=== PATIENT | male | born 1940 | race Caucasian/White ===

== ENCOUNTER 2021-01-20 15:51 | Inpatient (IN) | payer MEDICARE, OTHER ==
[~2021-01-20] VITALS: Ht 154.9 cm; Wt 123.4 kg
[2021-01-20 22:30] VITALS: BP 174/88
[2021-01-20] MEDS ORDERED: Z GUARD REMEDY PASTE 57 GM TUBE TOP PRN (22:30)
[2021-01-20] MEDS ORDERED: HYDR4TAB57 PO (22:51)
[2021-01-20] MEDS ORDERED: ATOR40TA PO (22:58)
[2021-01-20] MEDS ORDERED: ALLO100T56 GT (22:58)
[2021-01-20] MEDS ORDERED: CLOP75TA33 PO (22:58)
[2021-01-20] MEDS ORDERED: GABA600T12 PO (22:58)
[2021-01-20] MEDS ORDERED: METO-357 PO (23:23)
[2021-01-20] MEDS ORDERED: BUPR-319 PO (23:23)
[2021-01-20] MEDS ORDERED: RIFA550T PO (23:23)
[2021-01-20] MEDS ORDERED: METF-440 PO (23:23)
[2021-01-20] MEDS ORDERED: LOSA25TA27 PO (23:23)
[2021-01-20] MEDS ORDERED: ESCI5TAB16 PO (23:23)
[2021-01-20] MEDS ORDERED: ASPI81TA31 PO (23:23)
[2021-01-20] MEDS ORDERED: PANT40TA49 PO (23:23)
[2021-01-20] MEDS ORDERED: FINA5TAB11 PO (23:23)
[2021-01-20] MEDS ORDERED: LEVO25TA9 PO (23:23)
[2021-01-21] MEDS: ACETAMINOPHEN 325 MG TABLET PO PRN (00:24)
[2021-01-21] MEDS: HYDROMORPHONE HCL 2 MG TABLET PO PRN (03:47)
[2021-01-21 04:00] VITALS: BP 149/85
[2021-01-21] MEDS: LEVOTHYROXINE SODIUM 25 MCG TABLET PO SCH (06:49)
[2021-01-21] MEDS: PANTOPRAZOLE SODIUM 40 MG TABLET.DR PO SCH (06:50)
--- NOTE | 2021-01-21 07:02 | NUR ---
Admitted 80 y/o male accompanied by 2 [employer] [place] [employer] [place]. Patient is A/Ox4, with episodes of forgetfulness. Dx of deconditioning, debility, gait instability, and near syncope. Dr Hernandez and GRACE Shah informed of admission. Medication reconciliation done by GRACE Shah. Pertinent assessment done, wound pictures taken, MRSA swab and belonging's inventory done. Patient complaint of headache 10/10 and noted with high BP, tylenol PRN and Dilaudid PRN given with verbalization of relief. BP rechecked 154/86. Oriented patient to facility, call light placed within reach. Urinal at bedside and emptied out as needed. All needs attended. Frequent visual checks done. Will continue to monitor.
[2021-01-21 07:49] VITALS: BP 153/94
[2021-01-21] MEDS: ASPIRIN 81 MG TAB.CHEW PO SCH (09:53)
[2021-01-21] MEDS: buPROPion XL 150 MG TAB.SR.24H PO SCH (09:53)
[2021-01-21] MEDS: CLOPIDOGREL 75 MG TABLET PO SCH (09:53)
[2021-01-21] MEDS: METOPROLOL SUCCINATE XL 50 MG TAB.SR.24H PO SCH (09:56)
[2021-01-21] MEDS: LOSARTAN POTASSIUM 25 MG TABLET PO SCH (09:57)
[2021-01-21] MEDS: ESCITALOPRAM OXALATE 10 MG TABLET PO SCH (09:57)
[2021-01-21] MEDS: ALLOPURINOL 100 MG TABLET PO SCH (09:57)
[2021-01-21] MEDS: FINASTERIDE 5 MG TABLET PO SCH (09:57)
[2021-01-21] MEDS: RIFAXIMIN 550 MG TABLET PO SCH ×2 (10:41→16:42)
[2021-01-21] MEDS: METFORMIN HCL 500 MG TABLET PO SCH ×2 (10:54→16:42)
[2021-01-21 15:23] VITALS: BP 152/76
[2021-01-21] MEDS: ATORVASTATIN 40 MG TABLET PO SCH (18:30)
[2021-01-21] MEDS: GABAPENTIN 300 MG CAPSULE PO SCH (18:30)
[2021-01-21 20:00] VITALS: BP 130/63
--- NOTE | 2021-01-21 21:41 | NUR ---
Received patient on bed watching TV with no respiratory distress noted. A/Ox4, able to make needs known. Denies pain and discomfort at this time. Urinal at bedside and emptied out. All needs attended. Call light placed within reach. Frequent visual checks done. Will continue to monitor.
[2021-01-22] MEDS: PANTOPRAZOLE SODIUM 40 MG TABLET.DR PO SCH (06:33)
[2021-01-22] MEDS: LEVOTHYROXINE SODIUM 25 MCG TABLET PO SCH (06:33)
--- NOTE | 2021-01-22 06:46 | NUR ---
Patient slept throughout the night, easily arousable. A/Ox4, able to make needs known. Denies pain and discomfort at this time. Urinal at bedside and emptied out as needed. All needs attended. Call light placed within reach. Frequent visual checks done. Will endorse to next shift nurse.
[2021-01-22 06:53] LABS: HEMATOCRIT 40.7 % (36.7-47.1); MEAN CORPUSCULAR HEMOGLOBIN 30.6 uug (23.8-33.4); PLATELET COUNT (AUTO) 126 K/uL (152-348)
[2021-01-22 07:28] LABS: THYROID STIMULATING HORMONE 3.898 mIU/mL (0.358-3.740)
[2021-01-22 07:42] LABS: ALANINE AMINOTRANSFERASE 41 U/L (16-63); ALKALINE PHOSPHATASE 182 U/L (50-136); ASPARTATE AMINOTRANSFERASE 54 U/L (15-37); CARBON DIOXIDE 28 mmol/L (21-32); CHLORIDE 105 mmol/L (98-107); CHOLESTEROL 148 mg/dL (<200); CREATININE 1.6 mg/dL (0.6-1.3); GLUCOSE 101 mg/dL (74-106); HDL CHOLESTEROL 37 mg/dL (40-60); MAGNESIUM 2.1 mg/dL (1.8-2.4); POTASSIUM 4.1 mmol/L (3.5-5.1); TOTAL PROTEIN, SERUM 7.3 g/dL (6.4-8.2); TRIGLYCERIDES 108 MG/DL (30-150); UREA NITROGEN, BLOOD 21 mg/dL (7-18)
[2021-01-22] MEDS: ASPIRIN 81 MG TAB.CHEW PO SCH (09:13)
[2021-01-22] MEDS: LOSARTAN POTASSIUM 25 MG TABLET PO SCH (09:14)
[2021-01-22] MEDS: METOPROLOL SUCCINATE XL 50 MG TAB.SR.24H PO SCH (09:14)
[2021-01-22] MEDS: CLOPIDOGREL 75 MG TABLET PO SCH (09:15)
[2021-01-22] MEDS: buPROPion XL 150 MG TAB.SR.24H PO SCH (09:15)
[2021-01-22] MEDS: ALLOPURINOL 100 MG TABLET PO SCH (09:15)
[2021-01-22] MEDS: METFORMIN HCL 500 MG TABLET PO SCH ×2 (09:15→17:14)
[2021-01-22] MEDS: ESCITALOPRAM OXALATE 10 MG TABLET PO SCH (09:15)
[2021-01-22] MEDS: RIFAXIMIN 550 MG TABLET PO SCH ×2 (09:15→17:14)
[2021-01-22] MEDS: FINASTERIDE 5 MG TABLET PO SCH (09:16)
[2021-01-22 11:53] VITALS: BP 124/73
[2021-01-22 15:49] VITALS: BP 144/79
[2021-01-22] MEDS: GABAPENTIN 300 MG CAPSULE PO SCH (17:14)
[2021-01-22] MEDS: ATORVASTATIN 40 MG TABLET PO SCH (17:14)
[2021-01-22 20:08] VITALS: BP 160/90
[2021-01-22] MEDS: HYDROMORPHONE HCL 2 MG TABLET PO PRN (20:12)
--- NOTE | 2021-01-22 20:30 | NUR ---
Received pt resting in bed and watching tv. AAO x4. No acute distress noted. C/o 8/10 pain on the lower back aggravated by ambulation. Dilaudid PRN given as ordered. Safety measures maintained. Call light and personal items within reach. Will continue to monitor.
[2021-01-22] MEDS ORDERED: CLONIDINE HCL 0.1 MG TABLET PO PRN (20:45)
--- NOTE | 2021-01-22 22:30 | NUR ---
Pt's BP elevated 160/90 , rechecked 162/ 87. Pt denies CP, SOB, and dizziness. Notified [facility] who is doing her rounds on the floor. New order for clonidine 0.1 mg Q8H ORN for SBP >160. Carried out order, continue to monitor.
[2021-01-23 00:04] VITALS: BP 114/56
[2021-01-23 04:10] VITALS: BP 108/60
[2021-01-23] MEDS: LEVOTHYROXINE SODIUM 25 MCG TABLET PO SCH (06:34)
[2021-01-23] MEDS: PANTOPRAZOLE SODIUM 40 MG TABLET.DR PO SCH (06:34)
[2021-01-23 08:00] VITALS: BP 97/45
[2021-01-23] MEDS: METOPROLOL SUCCINATE XL 50 MG TAB.SR.24H PO SCH (09:00)
[2021-01-23] MEDS: ESCITALOPRAM OXALATE 10 MG TABLET PO SCH (09:56)
[2021-01-23] MEDS: buPROPion XL 150 MG TAB.SR.24H PO SCH (09:56)
[2021-01-23] MEDS: METFORMIN HCL 500 MG TABLET PO SCH ×2 (09:57→17:15)
[2021-01-23] MEDS: ASPIRIN 81 MG TAB.CHEW PO SCH (09:59)
[2021-01-23] MEDS: CLOPIDOGREL 75 MG TABLET PO SCH (09:59)
[2021-01-23] MEDS: FINASTERIDE 5 MG TABLET PO SCH (10:00)
[2021-01-23] MEDS: LOSARTAN POTASSIUM 25 MG TABLET PO SCH (10:01)
[2021-01-23] MEDS: ALLOPURINOL 100 MG TABLET PO SCH (10:09)
[2021-01-23] MEDS: RIFAXIMIN 550 MG TABLET PO SCH ×2 (10:10→17:15)
[2021-01-23] MEDS: HYDROMORPHONE HCL 2 MG TABLET PO PRN (10:11)
[2021-01-23 16:29] VITALS: BP 118/52
[2021-01-23] MEDS: GABAPENTIN 300 MG CAPSULE PO SCH (17:15)
[2021-01-23] MEDS: ATORVASTATIN 40 MG TABLET PO SCH (17:15)
[2021-01-23 21:02] VITALS: BP 160/78
[2021-01-24 04:21] VITALS: BP 122/58
--- NOTE | 2021-01-24 06:00 | NUR ---
SHIFT NOTES; BEGINNING OF SHIFT PT HAS A FAMILY NO SIGNS OF DISTRESS NOTED AND PT DENIES PAIN. PT WAS GIVEN MEDICATION ORDERED NO SIGNS OF ADVERSE REACTION NOTED. WILL CONTINUE TO MONITOR FOR SAFETY AND FALLS ALSO ENDORSE TO AM NURSE.
[2021-01-24] MEDS: LEVOTHYROXINE SODIUM 25 MCG TABLET PO SCH (06:56)
[2021-01-24] MEDS: PANTOPRAZOLE SODIUM 40 MG TABLET.DR PO SCH (06:56)
[2021-01-24 08:00] VITALS: BP 132/72
[2021-01-24] MEDS: LOSARTAN POTASSIUM 25 MG TABLET PO SCH (09:42)
[2021-01-24] MEDS: METOPROLOL SUCCINATE XL 50 MG TAB.SR.24H PO SCH (09:42)
[2021-01-24] MEDS: ASPIRIN 81 MG TAB.CHEW PO SCH (09:45)
[2021-01-24] MEDS: buPROPion XL 150 MG TAB.SR.24H PO SCH (09:45)
[2021-01-24] MEDS: CLOPIDOGREL 75 MG TABLET PO SCH (09:46)
[2021-01-24] MEDS: ALLOPURINOL 100 MG TABLET PO SCH (09:46)
[2021-01-24] MEDS: RIFAXIMIN 550 MG TABLET PO SCH ×2 (09:47→16:42)
[2021-01-24] MEDS: FINASTERIDE 5 MG TABLET PO SCH (09:48)
[2021-01-24] MEDS: METFORMIN HCL 500 MG TABLET PO SCH ×2 (09:51→16:42)
[2021-01-24] MEDS: ESCITALOPRAM OXALATE 10 MG TABLET PO SCH (09:52)
[2021-01-24 12:00] VITALS: BP 140/70
[2021-01-24 16:30] VITALS: BP 179/88
[2021-01-24] MEDS: HYDROMORPHONE HCL 2 MG TABLET PO PRN (16:41)
[2021-01-24] MEDS: ATORVASTATIN 40 MG TABLET PO SCH (16:42)
[2021-01-24] MEDS: GABAPENTIN 300 MG CAPSULE PO SCH (16:42)
[2021-01-24 20:18] VITALS: BP 151/70
[2021-01-25 04:18] VITALS: BP 143/74
[2021-01-25] MEDS: LEVOTHYROXINE SODIUM 25 MCG TABLET PO SCH (06:24)
[2021-01-25] MEDS: PANTOPRAZOLE SODIUM 40 MG TABLET.DR PO SCH (06:25)
[2021-01-25 08:01] VITALS: BP 125/71
[2021-01-25] MEDS: buPROPion XL 150 MG TAB.SR.24H PO SCH (08:21)
[2021-01-25] MEDS: FINASTERIDE 5 MG TABLET PO SCH (08:21)
[2021-01-25] MEDS: METFORMIN HCL 500 MG TABLET PO SCH ×2 (08:21→17:02)
[2021-01-25] MEDS: LOSARTAN POTASSIUM 25 MG TABLET PO SCH (08:21)
[2021-01-25] MEDS: ALLOPURINOL 100 MG TABLET PO SCH (08:21)
[2021-01-25] MEDS: CLOPIDOGREL 75 MG TABLET PO SCH (08:21)
[2021-01-25] MEDS: ASPIRIN 81 MG TAB.CHEW PO SCH (08:21)
[2021-01-25] MEDS: METOPROLOL SUCCINATE XL 50 MG TAB.SR.24H PO SCH (08:21)
[2021-01-25] MEDS: ESCITALOPRAM OXALATE 10 MG TABLET PO SCH (08:21)
[2021-01-25] MEDS: RIFAXIMIN 550 MG TABLET PO SCH ×2 (08:22→16:23)
[2021-01-25] MEDS: ACETAMINOPHEN 325 MG TABLET PO PRN (11:26)
[2021-01-25 15:46] VITALS: BP 148/77
[2021-01-25] MEDS: GABAPENTIN 300 MG CAPSULE PO SCH (17:02)
[2021-01-25] MEDS: ATORVASTATIN 40 MG TABLET PO SCH (17:02)
[2021-01-25 20:00] VITALS: BP 155/86
[2021-01-26] MEDS: HYDROMORPHONE HCL 2 MG TABLET PO PRN ×2 (00:31→18:15)
[2021-01-26 04:00] VITALS: BP 119/98
[2021-01-26] MEDS: LEVOTHYROXINE SODIUM 25 MCG TABLET PO SCH (06:04)
[2021-01-26] MEDS: PANTOPRAZOLE SODIUM 40 MG TABLET.DR PO SCH (06:04)
[2021-01-26 07:28] LABS: HEMATOCRIT 42.5 % (36.7-47.1); MEAN CORPUSCULAR HEMOGLOBIN 30.8 uug (23.8-33.4); MEAN CORPUSCULAR VOLUME 94.4 fL (73.0-96.2); PLATELET COUNT (AUTO) 146 K/uL (152-348)
[2021-01-26 07:30] VITALS: BP 109/64
--- NOTE | 2021-01-26 07:30 | NUR ---
RECEIVED AWAKE IN BED. NO ACUTE DISTRESS. IN PLEASANT MOOD AND CONVERSANT. IV INTACT. DENIES PAIN AT THIS TIME. SAFETY MEASURES IN PLACE. WILL CONTINUE TO MONITOR.
[2021-01-26 07:53] LABS: CARBON DIOXIDE 28 mmol/L (21-32); CHLORIDE 100 mmol/L (98-107); CREATININE 1.7 mg/dL (0.6-1.3); GLUCOSE 89 mg/dL (74-106); MAGNESIUM 2.2 mg/dL (1.8-2.4); PHOSPHOROUS 3.6 mg/dL (2.5-4.9); POTASSIUM 4.4 mmol/L (3.5-5.1); UREA NITROGEN, BLOOD 26 mg/dL (7-18)
[2021-01-26] MEDS: buPROPion XL 150 MG TAB.SR.24H PO SCH (08:50)
[2021-01-26] MEDS: ASPIRIN 81 MG TAB.CHEW PO SCH (08:50)
[2021-01-26] MEDS: METOPROLOL SUCCINATE XL 50 MG TAB.SR.24H PO SCH (08:51)
[2021-01-26] MEDS: METFORMIN HCL 500 MG TABLET PO SCH ×2 (08:51→17:13)
[2021-01-26] MEDS: LOSARTAN POTASSIUM 25 MG TABLET PO SCH (08:51)
[2021-01-26] MEDS: CLOPIDOGREL 75 MG TABLET PO SCH (08:51)
[2021-01-26] MEDS: ALLOPURINOL 100 MG TABLET PO SCH (08:52)
[2021-01-26] MEDS: FINASTERIDE 5 MG TABLET PO SCH (08:52)
[2021-01-26] MEDS: ESCITALOPRAM OXALATE 10 MG TABLET PO SCH (08:52)
[2021-01-26] MEDS: RIFAXIMIN 550 MG TABLET PO SCH ×2 (08:56→17:13)
[2021-01-26] MEDS: ACETAMINOPHEN 325 MG TABLET PO PRN (10:12)
--- NOTE | 2021-01-26 11:30 | NUR ---
C/O OF PAIN ON LEFT TOE. PER PATIENT HE ACCIDENTALLY HIT IT CAN'T REMEMBER WHERE. INFORMED DR. JESUS WITH LEFT FOOT XRAY NOTED AND CARRIED OUT.
[2021-01-26 15:33] VITALS: BP 138/74
--- NOTE | 2021-01-26 16:54 | NUR ---
RELAYED LEFT FOOT XRAY RESULT TO DR. JESUS.
[2021-01-26] MEDS: ATORVASTATIN 40 MG TABLET PO SCH (17:13)
[2021-01-26] MEDS: GABAPENTIN 300 MG CAPSULE PO SCH (17:13)
--- NOTE | 2021-01-26 18:49 | NUR ---
RESTING IN BED. NO ACUTE DISTRESS. DUE MEDS GIVEN. NO ADVERSE REACTION NOTED. SAFETY MEASURES MAINTAINED. NEEDS ATTENDED. WILL ENDORSE ACCORDINGLY.
[2021-01-26 20:00] VITALS: BP 145/86
--- NOTE | 2021-01-26 22:05 | NUR ---
Awake alert and oriented x4 All needs attended. Voiding freely in the urinal. Was OOB with supervision. No acute distress noted. VSS Kept comfortable. Denies any pain nor any discomfort. Will monitor patient.
[2021-01-27 04:00] VITALS: BP 127/72
[2021-01-27] MEDS: PANTOPRAZOLE SODIUM 40 MG TABLET.DR PO SCH (06:14)
[2021-01-27] MEDS: LEVOTHYROXINE SODIUM 25 MCG TABLET PO SCH (06:14)
[2021-01-27] MEDS: CLOPIDOGREL 75 MG TABLET PO SCH (08:28)
[2021-01-27] MEDS: ASPIRIN 81 MG TAB.CHEW PO SCH (08:28)
[2021-01-27] MEDS: RIFAXIMIN 550 MG TABLET PO SCH ×2 (08:28→16:48)
[2021-01-27] MEDS: FINASTERIDE 5 MG TABLET PO SCH (08:29)
[2021-01-27] MEDS: ESCITALOPRAM OXALATE 10 MG TABLET PO SCH (08:29)
[2021-01-27] MEDS: buPROPion XL 150 MG TAB.SR.24H PO SCH (08:29)
[2021-01-27] MEDS: ALLOPURINOL 100 MG TABLET PO SCH (08:29)
[2021-01-27] MEDS: METFORMIN HCL 500 MG TABLET PO SCH ×2 (08:29→17:11)
[2021-01-27] MEDS: METOPROLOL SUCCINATE XL 50 MG TAB.SR.24H PO SCH (08:30)
[2021-01-27] MEDS: LOSARTAN POTASSIUM 25 MG TABLET PO SCH (08:30)
[2021-01-27 08:40] VITALS: BP 115/69
[2021-01-27] MEDS: HYDROMORPHONE HCL 2 MG TABLET PO PRN ×2 (08:46→20:20)
--- NOTE | 2021-01-27 14:01 | NUR ---
INDIVIDUALIZED PLAN OF CARE
--- NOTE | 2021-01-27 14:30 | NUR ---
INTERDISCIPLINARY TEAM CONFERENCE
[2021-01-27 15:35] VITALS: BP 135/77
[2021-01-27] MEDS: ATORVASTATIN 40 MG TABLET PO SCH (17:11)
[2021-01-27] MEDS: GABAPENTIN 300 MG CAPSULE PO SCH (17:11)
--- NOTE | 2021-01-27 18:13 | NUR ---
Dr govea is awsre of CT scan result of left foot, with recommendation of ortho consult.
--- NOTE | 2021-01-27 19:12 | NUR ---
PAGED DR PUENTE FOR WEIGHT BEARING STATUS AND FOR CONSULT, WAITING FOR RESPONSE
--- NOTE | 2021-01-27 19:12 | NUR ---
PATIENT STILL NOTED WITH SOME RECTAL AND VAGINAL BLEEDING, NO DISTRESS NOTED Addendum: 01/27/21 at 1913 by LOC ARMSTRONG RN, RN DISCARD ABOVE CHARTING, WRONG DOCUMENTATION
[2021-01-27 20:48] VITALS: BP 135/64
--- NOTE | 2021-01-27 21:46 | NUR ---
Resting in bed watching TV upon initial rounds. AAOx4 complained of left toe pain, dilaudid 4mg po given as needed for pain. Patient had fracture of 5th metatarsal and 4th talus fracture, Dr Majano consulted, awaiting for reply. Needs attended. Continent of bowel and bladder, voiding well in the urinal, no BM noted this shift. Will monitor patient. Siderails up for safety.
[2021-01-28 04:00] VITALS: BP 130/72
[2021-01-28] MEDS: LEVOTHYROXINE SODIUM 25 MCG TABLET PO SCH (06:14)
[2021-01-28] MEDS: PANTOPRAZOLE SODIUM 40 MG TABLET.DR PO SCH (06:14)
[2021-01-28 08:00] VITALS: BP 135/69
--- NOTE | 2021-01-28 08:16 | NUR ---
Patient was reported to have fracture of 5th metatarsal and 4th talus fracture, Dr Majano order Short leg boot WBAzt, noted and carried out. Will continue to monitor.
[2021-01-28] MEDS: CLOPIDOGREL 75 MG TABLET PO SCH (08:56)
[2021-01-28] MEDS: METOPROLOL SUCCINATE XL 50 MG TAB.SR.24H PO SCH (08:56)
[2021-01-28] MEDS: ALLOPURINOL 100 MG TABLET PO SCH (08:56)
[2021-01-28] MEDS: buPROPion XL 150 MG TAB.SR.24H PO SCH (08:56)
[2021-01-28] MEDS: ASPIRIN 81 MG TAB.CHEW PO SCH (08:56)
[2021-01-28] MEDS: ESCITALOPRAM OXALATE 10 MG TABLET PO SCH (08:57)
[2021-01-28] MEDS: FINASTERIDE 5 MG TABLET PO SCH (08:58)
[2021-01-28] MEDS: LOSARTAN POTASSIUM 25 MG TABLET PO SCH (08:58)
[2021-01-28] MEDS: METFORMIN HCL 500 MG TABLET PO SCH ×2 (08:58→16:58)
[2021-01-28] MEDS: RIFAXIMIN 550 MG TABLET PO SCH ×2 (09:55→16:24)
[2021-01-28] MEDS: HYDROMORPHONE HCL 2 MG TABLET PO PRN (10:49)
[2021-01-28 15:52] VITALS: BP 132/75
[2021-01-28] MEDS: GABAPENTIN 300 MG CAPSULE PO SCH (16:58)
[2021-01-28] MEDS: ATORVASTATIN 40 MG TABLET PO SCH (16:58)
--- NOTE | 2021-01-28 17:27 | NUR ---
The patient is alert/oriented x4. No distress noted. PRN pain medication given as ordered. Kept boot in place as ordered. Safety checks frequently done and safety precaution maintained. Kept patient clean, dry, and comfortable. All needs attended. Will continue to monitor for any significant changes.
[2021-01-28 20:10] VITALS: BP 123/82
[2021-01-29 04:10] VITALS: BP 131/64
[2021-01-29] MEDS: LEVOTHYROXINE SODIUM 25 MCG TABLET PO SCH (05:55)
[2021-01-29] MEDS: PANTOPRAZOLE SODIUM 40 MG TABLET.DR PO SCH (05:55)
--- NOTE | 2021-01-29 07:30 | NUR ---
Patient received in bed, alert and oriented x4. Patient on RA with no SOB or difficulties breathing. No acute distress noted. Left leg boot in place as ordered. No reports of pain or discomforts at this time. Call light and personal belongings within easy reach. Will continue to monitor.
[2021-01-29] MEDS: METFORMIN HCL 500 MG TABLET PO SCH ×2 (08:36→17:13)
[2021-01-29] MEDS: ALLOPURINOL 100 MG TABLET PO SCH (08:36)
[2021-01-29] MEDS: ASPIRIN 81 MG TAB.CHEW PO SCH (08:36)
[2021-01-29] MEDS: buPROPion XL 150 MG TAB.SR.24H PO SCH (08:36)
[2021-01-29] MEDS: CLOPIDOGREL 75 MG TABLET PO SCH (08:36)
[2021-01-29] MEDS: FINASTERIDE 5 MG TABLET PO SCH (08:37)
[2021-01-29] MEDS: ESCITALOPRAM OXALATE 10 MG TABLET PO SCH (08:37)
[2021-01-29] MEDS: METOPROLOL SUCCINATE XL 50 MG TAB.SR.24H PO SCH (08:40)
[2021-01-29] MEDS: LOSARTAN POTASSIUM 25 MG TABLET PO SCH (08:40)
[2021-01-29] MEDS: RIFAXIMIN 550 MG TABLET PO SCH ×2 (08:41→17:13)
[2021-01-29] MEDS: HYDROMORPHONE HCL 2 MG TABLET PO PRN (13:28)
--- NOTE | 2021-01-29 13:30 | NUR ---
PT NOTE PT UNABLE TO MICHAEL OUT OF ROOM ACTIVITIES TODAY D/T BACK PAIN, FATIGUE AND LOW BP. SKIN ASSESSMENT RECOMMENDED D/T SHORT LEG BOOT ON FOR PT ACTIVITIES. WILL F/U NEXT TX SCHEDULED.
[2021-01-29 16:10] VITALS: BP 98/65
[2021-01-29] MEDS: ATORVASTATIN 40 MG TABLET PO SCH (17:13)
[2021-01-29] MEDS: GABAPENTIN 300 MG CAPSULE PO SCH (17:13)
[2021-01-29] MEDS: ACETAMINOPHEN 325 MG TABLET PO PRN (17:13)
[2021-01-29 20:15] VITALS: BP 134/62
[2021-01-30 04:08] VITALS: BP 113/71
[2021-01-30] MEDS: PANTOPRAZOLE SODIUM 40 MG TABLET.DR PO SCH (06:49)
[2021-01-30] MEDS: LEVOTHYROXINE SODIUM 25 MCG TABLET PO SCH (06:49)
[2021-01-30 07:58] VITALS: BP 119/46
[2021-01-30] MEDS: METFORMIN HCL 500 MG TABLET PO SCH ×2 (08:15→17:36)
[2021-01-30] MEDS: ALLOPURINOL 100 MG TABLET PO SCH (08:15)
[2021-01-30] MEDS: CLOPIDOGREL 75 MG TABLET PO SCH (08:15)
[2021-01-30] MEDS: FINASTERIDE 5 MG TABLET PO SCH (08:16)
[2021-01-30] MEDS: ASPIRIN 81 MG TAB.CHEW PO SCH (08:16)
[2021-01-30] MEDS: buPROPion XL 150 MG TAB.SR.24H PO SCH (08:16)
[2021-01-30] MEDS: LOSARTAN POTASSIUM 25 MG TABLET PO SCH (08:16)
[2021-01-30] MEDS: ESCITALOPRAM OXALATE 10 MG TABLET PO SCH (08:16)
[2021-01-30] MEDS: METOPROLOL SUCCINATE XL 50 MG TAB.SR.24H PO SCH (08:16)
[2021-01-30] MEDS: RIFAXIMIN 550 MG TABLET PO SCH ×2 (08:17→17:37)
[2021-01-30] MEDS: HYDROMORPHONE HCL 2 MG TABLET PO PRN ×2 (12:46→17:37)
[2021-01-30 15:23] VITALS: BP 115/72
[2021-01-30] MEDS: GABAPENTIN 300 MG CAPSULE PO SCH (17:37)
[2021-01-30] MEDS: ATORVASTATIN 40 MG TABLET PO SCH (17:37)
[2021-01-30 20:25] VITALS: BP 117/74
[2021-01-31 04:20] VITALS: BP 106/57
--- NOTE | 2021-01-31 05:29 | NUR ---
Shift End Report: Slept good. No compliant presented all night. All needs attended and met. No significant event reported. Continue current rehab plan of care. VS stable.
[2021-01-31] MEDS: LEVOTHYROXINE SODIUM 25 MCG TABLET PO SCH (06:01)
[2021-01-31] MEDS: PANTOPRAZOLE SODIUM 40 MG TABLET.DR PO SCH ×2 (06:01→10:50)
[2021-01-31 08:04] VITALS: BP 143/76
[2021-01-31] MEDS: ALLOPURINOL 100 MG TABLET PO SCH (10:50)
[2021-01-31] MEDS: METOPROLOL SUCCINATE XL 50 MG TAB.SR.24H PO SCH (10:50)
[2021-01-31] MEDS: LOSARTAN POTASSIUM 25 MG TABLET PO SCH (10:50)
[2021-01-31] MEDS: FINASTERIDE 5 MG TABLET PO SCH (10:50)
[2021-01-31] MEDS: ASPIRIN 81 MG TAB.CHEW PO SCH (10:50)
[2021-01-31] MEDS: buPROPion XL 150 MG TAB.SR.24H PO SCH (10:51)
[2021-01-31] MEDS: ESCITALOPRAM OXALATE 10 MG TABLET PO SCH (10:51)
[2021-01-31] MEDS: CLOPIDOGREL 75 MG TABLET PO SCH (10:51)
[2021-01-31] MEDS: RIFAXIMIN 550 MG TABLET PO SCH ×2 (11:04→19:31)
[2021-01-31] MEDS: METFORMIN HCL 500 MG TABLET PO SCH ×2 (11:04→19:31)
[2021-01-31] MEDS: HYDROMORPHONE HCL 2 MG TABLET PO PRN ×2 (11:04→21:25)
[2021-01-31 15:14] VITALS: BP 112/60
[2021-01-31] MEDS: GABAPENTIN 300 MG CAPSULE PO SCH (19:30)
[2021-01-31] MEDS: ATORVASTATIN 40 MG TABLET PO SCH (19:30)
[2021-01-31 20:00] VITALS: BP 101/74
[2021-02-01 04:00] VITALS: BP 113/73
[2021-02-01] MEDS: LEVOTHYROXINE SODIUM 25 MCG TABLET PO SCH (06:16)
[2021-02-01] MEDS: METFORMIN HCL 500 MG TABLET PO SCH ×2 (07:26→17:18)
[2021-02-01] MEDS: HYDROMORPHONE HCL 2 MG TABLET PO PRN ×2 (08:54→21:59)
[2021-02-01 08:56] VITALS: BP 126/76
[2021-02-01] MEDS: ESCITALOPRAM OXALATE 10 MG TABLET PO SCH (08:56)
[2021-02-01] MEDS: METOPROLOL SUCCINATE XL 50 MG TAB.SR.24H PO SCH (08:56)
[2021-02-01] MEDS: buPROPion XL 150 MG TAB.SR.24H PO SCH (08:56)
[2021-02-01] MEDS: ASPIRIN 81 MG TAB.CHEW PO SCH (08:56)
[2021-02-01] MEDS: FINASTERIDE 5 MG TABLET PO SCH (08:57)
[2021-02-01] MEDS: LOSARTAN POTASSIUM 25 MG TABLET PO SCH (08:57)
[2021-02-01] MEDS: RIFAXIMIN 550 MG TABLET PO SCH ×2 (08:57→16:44)
[2021-02-01] MEDS: CLOPIDOGREL 75 MG TABLET PO SCH (09:01)
[2021-02-01] MEDS: ALLOPURINOL 100 MG TABLET PO SCH (09:16)
[2021-02-01 15:50] VITALS: BP 100/68
[2021-02-01] MEDS: ATORVASTATIN 40 MG TABLET PO SCH (17:18)
[2021-02-01] MEDS: GABAPENTIN 300 MG CAPSULE PO SCH (17:18)
[2021-02-01 20:26] VITALS: BP 101/54
--- NOTE | 2021-02-01 21:13 | NUR ---
Received pt resting in bed and watching tv. AAO x4. No acute distress noted. Denies pain/ discomfort. Safety measures maintained. Call light and personal items within reach. Will continue to monitor.
[2021-02-02 04:45] VITALS: BP 103/46
[2021-02-02] MEDS: PANTOPRAZOLE SODIUM 40 MG TABLET.DR PO SCH (06:04)
[2021-02-02] MEDS: LEVOTHYROXINE SODIUM 25 MCG TABLET PO SCH (06:04)
[2021-02-02 07:49] VITALS: BP 110/69
[2021-02-02] MEDS: RIFAXIMIN 550 MG TABLET PO SCH ×2 (08:50→16:46)
[2021-02-02] MEDS: buPROPion XL 150 MG TAB.SR.24H PO SCH (08:50)
[2021-02-02] MEDS: HYDROMORPHONE HCL 2 MG TABLET PO PRN (08:50)
[2021-02-02] MEDS: METFORMIN HCL 500 MG TABLET PO SCH ×2 (08:50→16:46)
[2021-02-02] MEDS: ASPIRIN 81 MG TAB.CHEW PO SCH (08:50)
[2021-02-02] MEDS: CLOPIDOGREL 75 MG TABLET PO SCH (08:51)
[2021-02-02] MEDS: ALLOPURINOL 100 MG TABLET PO SCH (08:51)
[2021-02-02] MEDS: ESCITALOPRAM OXALATE 10 MG TABLET PO SCH (08:51)
[2021-02-02] MEDS: LOSARTAN POTASSIUM 25 MG TABLET PO SCH (08:51)
[2021-02-02] MEDS: FINASTERIDE 5 MG TABLET PO SCH (08:51)
[2021-02-02] MEDS: METOPROLOL SUCCINATE XL 50 MG TAB.SR.24H PO SCH (08:51)
[2021-02-02 16:00] VITALS: BP 111/57
[2021-02-02] MEDS: ATORVASTATIN 40 MG TABLET PO SCH (16:46)
[2021-02-02] MEDS: GABAPENTIN 300 MG CAPSULE PO SCH (16:46)
--- NOTE | 2021-02-02 19:00 | NUR ---
The patient is alert/oriented x4. Not in any distress. PRN pain medication given as ordered. Safety checks frequently done and safety precaution maintained. Kept patient clean, dry, and comfortable. All needs attended. Will continue to monitor.
[2021-02-02 20:23] VITALS: BP 133/77
--- NOTE | 2021-02-02 20:54 | NUR ---
Received pt resting in bed. AAO x4. On 2L O2 at night, no acute distress noted. Denies pain/ discomfort. Due meds given as ordered, with apple sauce, tolerated well. Safety measures maintained. Bed alarm on. Call light within reach. Will continue to monitor. Addendum: 02/02/21 at 2055 by Stuart Baker RN WRONG PATIENT ENTRY
--- NOTE | 2021-02-02 20:57 | NUR ---
Received pt resting in bed. AAO x4. Family at bedside visiting pt. No acute distress noted. Denies pain/ discomfort. Pt excited to be discharge on . Safety measures maintained. Bed alarm on. Call light within reach. Will continue to monitor.
[2021-02-03 04:43] VITALS: BP 139/73
[2021-02-03] MEDS: LEVOTHYROXINE SODIUM 25 MCG TABLET PO SCH (06:18)
[2021-02-03] MEDS: PANTOPRAZOLE SODIUM 40 MG TABLET.DR PO SCH (06:18)
[2021-02-03 06:40] LABS: HEMATOCRIT 42.3 % (36.7-47.1); MEAN CORPUSCULAR VOLUME 96.2 fL (73.0-96.2); PLATELET COUNT (AUTO) 170 K/uL (152-348)
[2021-02-03 06:49] LABS: CARBON DIOXIDE 26 mmol/L (21-32); CHLORIDE 100 mmol/L (98-107); CREATININE 2.3 mg/dL (0.6-1.3); GLUCOSE 111 mg/dL (74-106); POTASSIUM 4.3 mmol/L (3.5-5.1); UREA NITROGEN, BLOOD 36 mg/dL (7-18)
[2021-02-03] MEDS ORDERED: IV NS 1000 ML 1,000 ML IV PRN (07:45)
[2021-02-03 07:59] VITALS: BP 121/78
[2021-02-03] MEDS ORDERED: METFORMIN HCL 500 MG TABLET PO SCH (08:00)
[2021-02-03] MEDS: LOSARTAN POTASSIUM 25 MG TABLET PO SCH (08:08)
[2021-02-03] MEDS: CLOPIDOGREL 75 MG TABLET PO SCH (08:08)
[2021-02-03] MEDS: buPROPion XL 150 MG TAB.SR.24H PO SCH (08:08)
[2021-02-03] MEDS: ASPIRIN 81 MG TAB.CHEW PO SCH (08:08)
[2021-02-03] MEDS: ALLOPURINOL 100 MG TABLET PO SCH (08:08)
[2021-02-03] MEDS: ESCITALOPRAM OXALATE 10 MG TABLET PO SCH (08:08)
[2021-02-03] MEDS: RIFAXIMIN 550 MG TABLET PO SCH ×2 (08:09→16:57)
[2021-02-03] MEDS: FINASTERIDE 5 MG TABLET PO SCH (08:09)
[2021-02-03] MEDS: METOPROLOL SUCCINATE XL 50 MG TAB.SR.24H PO SCH (08:09)
[2021-02-03] MEDS: HYDROMORPHONE HCL 2 MG TABLET PO PRN (10:26)
[2021-02-03 15:50] VITALS: BP 127/79
[2021-02-03] MEDS: ATORVASTATIN 40 MG TABLET PO SCH (17:04)
[2021-02-03] MEDS: GABAPENTIN 300 MG CAPSULE PO SCH (17:04)
--- NOTE | 2021-02-03 19:11 | NUR ---
INTERDISCIPLINARY TEAM CONFERENCE
[2021-02-03 22:15] VITALS: BP 116/62
[2021-02-04 04:15] VITALS: BP 102/67
[2021-02-04] MEDS: PANTOPRAZOLE SODIUM 40 MG TABLET.DR PO SCH (06:02)
[2021-02-04] MEDS: LEVOTHYROXINE SODIUM 25 MCG TABLET PO SCH (06:02)
[2021-02-04 06:41] LABS: HEMATOCRIT 37.8 % (36.7-47.1); MEAN CORPUSCULAR HEMOGLOBIN 31.8 uug (23.8-33.4); MEAN CORPUSCULAR VOLUME 94.5 fL (73.0-96.2); PLATELET COUNT (AUTO) 134 K/uL (152-348)
[2021-02-04 07:00] LABS: CARBON DIOXIDE 29 mmol/L (21-32); CHLORIDE 104 mmol/L (98-107); CREATININE 2.4 mg/dL (0.6-1.3); GLUCOSE 116 mg/dL (74-106); UREA NITROGEN, BLOOD 31 mg/dL (7-18)
[2021-02-04 08:00] VITALS: BP 144/80
[2021-02-04] MEDS: HYDROMORPHONE HCL 2 MG TABLET PO PRN (09:17)
[2021-02-04] MEDS: LOSARTAN POTASSIUM 25 MG TABLET PO SCH (09:19)
[2021-02-04] MEDS: buPROPion XL 150 MG TAB.SR.24H PO SCH (09:20)
[2021-02-04] MEDS: ASPIRIN 81 MG TAB.CHEW PO SCH (09:20)
[2021-02-04] MEDS: FINASTERIDE 5 MG TABLET PO SCH (09:20)
[2021-02-04] MEDS: CLOPIDOGREL 75 MG TABLET PO SCH (09:20)
[2021-02-04] MEDS: METOPROLOL SUCCINATE XL 50 MG TAB.SR.24H PO SCH (09:20)
[2021-02-04] MEDS: ESCITALOPRAM OXALATE 10 MG TABLET PO SCH (09:20)
[2021-02-04] MEDS: ALLOPURINOL 100 MG TABLET PO SCH (09:20)
[2021-02-04] MEDS: RIFAXIMIN 550 MG TABLET PO SCH ×2 (09:21→17:22)
[2021-02-04 12:01] VITALS: BP 128/68
[2021-02-04 16:00] VITALS: BP 106/76
[2021-02-04] MEDS: ATORVASTATIN 40 MG TABLET PO SCH (17:22)
[2021-02-04] MEDS: GABAPENTIN 300 MG CAPSULE PO SCH (17:22)
--- NOTE | 2021-02-04 18:31 | NUR ---
The patient is alert/oriented x4. PRN pain medication given as ordered. Per Dr. Blanco, patient will not be discharged today. Patient made aware. CM aware. Safety checks frequently done and safety precaution maintained. Kept patient clean, dry, and comfortable. All needs attended. Will continue to monitor.
[2021-02-04 20:10] VITALS: BP 115/62
[2021-02-04] MEDS ORDERED: IV NORMAL SALINE 500 ML BAG IV ONE (23:15)
[2021-02-04 23:37] LABS: *BILIRUBIN,URIN NEGATIVE (NEGATIVE); *BLOOD, URINE NEGATIVE (NEGATIVE); *CLARITY,URINE CLEAR (CLEAR); *COLOR,URINE YELLOW (YELLOW); *KETONES,URINE NEGATIVE (NEGATIVE); LEUKOCYTE ESTERASE ,URINE NEGATIVE (NEGATIVE); NITRITE, URINE POSITIVE (NEGATIVE); PH,URINE 6.5 (5.0-8.0); UGLUCOSE NEGATIVE (NEGATIVE)
[2021-02-04 23:57] LABS: BACTERIA,URINE MANY /HPF (NONE SEEN); SQUAMOUS EPITHELIAL CELL,UR FEW /HPF (NONE SEEN); WBC,URINE 0-3 /HPF (0-3)
[2021-02-05 04:10] VITALS: BP 106/79
[2021-02-05] MEDS: LEVOTHYROXINE SODIUM 25 MCG TABLET PO SCH (06:01)
[2021-02-05] MEDS: PANTOPRAZOLE SODIUM 40 MG TABLET.DR PO SCH (06:01)
[2021-02-05 07:11] LABS: CARBON DIOXIDE 23 mmol/L (21-32); CHLORIDE 106 mmol/L (98-107); GLUCOSE 113 mg/dL (74-106); UREA NITROGEN, BLOOD 28 mg/dL (7-18)
[2021-02-05 07:41] VITALS: BP 146/64
[2021-02-05] MEDS: ASPIRIN 81 MG TAB.CHEW PO SCH (09:33)
[2021-02-05] MEDS: CLOPIDOGREL 75 MG TABLET PO SCH (09:33)
[2021-02-05] MEDS: ALLOPURINOL 100 MG TABLET PO SCH (09:34)
[2021-02-05] MEDS: ESCITALOPRAM OXALATE 10 MG TABLET PO SCH (09:35)
[2021-02-05] MEDS: FINASTERIDE 5 MG TABLET PO SCH (09:36)
[2021-02-05] MEDS: LOSARTAN POTASSIUM 25 MG TABLET PO SCH (09:36)
[2021-02-05] MEDS: buPROPion XL 150 MG TAB.SR.24H PO SCH (09:36)
[2021-02-05] MEDS: RIFAXIMIN 550 MG TABLET PO SCH ×2 (09:37→17:39)
[2021-02-05] MEDS: HYDROMORPHONE HCL 2 MG TABLET PO PRN (09:37)
[2021-02-05] MEDS: METOPROLOL SUCCINATE XL 50 MG TAB.SR.24H PO SCH (09:43)
[2021-02-05 15:10] VITALS: BP 150/82
--- NOTE | 2021-02-05 15:15 | NUR ---
Dr. Hernandez in the unit, ordered for discharge to home with home health for PT, OT and nursing services.
[2021-02-05] MEDS: GABAPENTIN 300 MG CAPSULE PO SCH (17:39)
[2021-02-05] MEDS: ATORVASTATIN 40 MG TABLET PO SCH (17:39)
--- NOTE | 2021-02-05 18:30 | NUR ---
Discharge instructions provided to the patient with caregiver at bedside with verbalized understanding. Discharge papers signed by and given to the patient. All belongings well accounted for. Discharge photos taken. Patient remains alert, oriented x 4, not in any form of distress on room air. He denies any pain or discomfort at this time. Vital signs stable. Skin is intact. Assisted with his needs. Assisted patient to the lobby via wheelchair. Patient picked up by caregiver Jas Banegas via private car. Patient discharged to home with home health.
== END 2021-02-05 18:30 | disposition home health service (06) | DRG 91 ==
PROVIDERS: ADMIT Internal Medicine; ATTEND Physical Medicine & Rehabilitation Pain Medicine
DX: R26.89 Other abnormalities of gait and mobility (principal); N17.0 Acute kidney failure with tubular necrosis; D68.59 Other primary thrombophilia; E46 Unspecified protein-calorie malnutrition; Q87.19 Other congenital malformation syndromes predominantly associated with short stature; E03.9 Hypothyroidism, unspecified; E11.22 Type 2 diabetes mellitus with diabetic chronic kidney disease; E78.5 Hyperlipidemia, unspecified; H81.10 Benign paroxysmal vertigo, unspecified ear; I12.9 Hypertensive chronic kidney disease with stage 1 through stage 4 chronic kidney disease, or unspecified chronic kidney disease; I25.10 Atherosclerotic heart disease of native coronary artery without angina pectoris; J44.9 Chronic obstructive pulmonary disease, unspecified; K74.60 Unspecified cirrhosis of liver; N18.9 Chronic kidney disease, unspecified; N40.0 Benign prostatic hyperplasia without lower urinary tract symptoms; Z95.1 Presence of aortocoronary bypass graft; K21.9 Gastro-esophageal reflux disease without esophagitis; E11.42 Type 2 diabetes mellitus with diabetic polyneuropathy; E66.01 Morbid (severe) obesity due to excess calories; E86.0 Dehydration; F41.9 Anxiety disorder, unspecified; F32.9 Major depressive disorder, single episode, unspecified; G89.29 Other chronic pain; I27.20 Pulmonary hypertension, unspecified; I70.0 Atherosclerosis of aorta; K72.90 Hepatic failure, unspecified without coma; K76.0 Fatty (change of) liver, not elsewhere classified; M19.90 Unspecified osteoarthritis, unspecified site; Z90.49 Acquired absence of other specified parts of digestive tract; M54.5 Low back pain; R90.82 White matter disease, unspecified; Z88.5 Allergy status to narcotic agent; S92.135A Nondisplaced fracture of posterior process of left talus, initial encounter for closed fracture; S92.355A Nondisplaced fracture of fifth metatarsal bone, left foot, initial encounter for closed fracture; X58.XXXA Exposure to other specified factors, initial encounter; Y93.9 Activity, unspecified; Y92.9 Unspecified place or not applicable
CPT/HCPCS: 36415; 73630; 73700; 83735; 84100; 84300; 84443; 85025; 87086; 97161; A4663; J7030; J8499